=== PATIENT | female | born 1995 ===

== ENCOUNTER 2017-12-10 18:21 | Emergency (ER) | payer SELFPAY ==
[2017-12-10 19:14] LABS: ABS Basophils 0 10^3/ul (0-0.2); ABS Eosinophils 0 10^3/ul (0-0.6); ABS Lymphocytes 0.6 10^3/ul (1.0-4.8); ABS Monocytes 0.9 10^3/ul (0-0.8); ABS Nucleated RBC 0 10^3/ul; Eosinophil % 0 % (0-6); Hematocrit 37 % (35-47); Hemoglobin 12.4 g/dl (12.0-16.0); Lymphocyte % 6.3 % (25-47); Mean Corpuscular HGB Conc 34 g/dl (31-36); Mean Corpuscular Hemoglobin 29 pg (27-31); Mean Corpuscular Volume 87 fL (80-97); Mean Platelet Volume 9 um3 (7.4-10.4); Nucleated Red Blood Cells % 0; Platelet Count 178 10^3/ul (150-450); Red Blood Count 4.25 10^6/ul (4.0-5.4); Red Cell Distribution Width 13 % (10.5-15); White Blood Count 9.5 10^3/ul (3.5-10.8)
[2017-12-10 19:39] LABS: Urine Appearance Cloudy; Urine Blood 3+ (Negative); Urine Color Yellow; Urine Ketones Negative (Negative); Urine Protein 1+(30 mg/dL) (Negative); Urine Specific Gravity 1.002 (1.010-1.030); Urine Urobilinogen Negative (Negative)
[2017-12-10 19:41] LABS: EGFR Non-African American 90.5 (>60)
--- NOTE | 2017-12-10 20:32 | RAD ---
HISTORY: Right lower quadrant pain COMPARISONS: None TECHNIQUE: Multiple transverse and longitudinal ultrasound images were obtained of the right lower quadrant using grayscale and color Doppler imaging. FINDINGS: The appendix is not visualized. There is no free or loculated fluid within the right lower quadrant. IMPRESSION: THE APPENDIX IS NOT VISUALIZED. THERE IS NO FREE OR LOCULATED FLUID WITHIN THE RIGHT LOWER QUADRANT.
[2017-12-10] MEDS ORDERED: NS 0.9% 1000 ML* 2,000 ML IV ONE (20:40)
[2017-12-10] MEDS ORDERED: Morphine INJ* 2 MG/ML 1 ML CARPUJECT IV ONE (20:40)
--- NOTE | 2017-12-10 20:41 | RAD ---
HISTORY: Right lower quadrant pain COMPARISONS: None TECHNIQUE: Multiple transverse and longitudinal ultrasound images were obtained of the pelvis using grayscale, color Doppler, and spectral Doppler imaging using the endovaginal transducer. FINDINGS: UTERUS: The uterus measures 10.3 x 2.5 x 4.2 cm. The uterus is normal in shape, size, contour, and echotexture. ENDOMETRIUM: The endometrial stripe is smooth. The endometrium measures 0.2 cm in thickness. An IUD is noted centrally within the endometrial cavity towards the fundus. The trace amount of endometrial fluid described in the technologist notes is not well visualized and would be expected to be physiologic as described. CUL-DE-SAC: There is no free fluid within the cul-de-sac. RIGHT OVARY: The right ovary measures 2.8 x 1.5 x 2.8 cm. Normal arterial and venous waveforms are identifiable within the ovary on spectral Doppler imaging. Multiple follicles are noted. There is a 1.4 x 1.1 x 1.2 cm simple cyst of the right ovary. LEFT OVARY: The left ovary measures 2.4 x 1.3 x 1.5 cm. Multiple follicles are noted. ] Normal ovary flow BLADDER: The bladder is not well visualized. OTHER: None IMPRESSION: 1. AN IUD IS NOTED CENTRALLY WITHIN THE ENDOMETRIAL CAVITY TOWARDS THE FUNDUS. 2. NO SONOGRAPHIC FEATURES OF TORSION. PLEASE NOTE THAT PARTIAL OR INTERMITTENT TORSION MAY BE SONOGRAPHICALLY NORMAL.
--- NOTE | 2017-12-10 20:44 | ED ---
Abdominal Pain/Female - HPI Summary HPI Summary: 22-year-old female presents to ED with complaints of uti like symptoms and now lower abdominal pain that began today. Patient was seen and health earlier today. States pain has increasingly gotten worse since when it started. States she was having some bladder pain, dysuria, frequency burning and also began having the lower abdominal pain today. Describes pain to be sharp and aching worse with movement and touch. Has not taken any medications. Denies nausea vomiting. Did have a fever earlier today. Normal bowel movements. Has IUD Mirena. Is sexually active. Last menstrual cycle was in August. However they are irregular. Did have a recent and D&C one month ago, november 08, at 6 weeks and is also when she also had the IUD placed. No other abdominal surgeries. No past medical history. Admits to vaginal spotting. Denies any vaginal discharge, bleeding, or itching. No concerns at this time. Denies history of ovarian cysts. - History of Current Complaint Chief Complaint: EDAbdPain Stated Complaint: ABD PAIN Time Seen by Provider: 12/10/17 18:56 Hx Obtained From: Patient Hx Last Menstrual Period: 08/2017 Onset/Duration: Sudden Onset, Lasting Days - yesterday, worse today, Still Present, Worse Since Timing: Constant Severity Initially: Mild Severity Currently: Moderate Pain Intensity: 7 Pain Scale Used: 0-10 Numeric Location: Discrete At: RLQ, Suprapubic Radiates: Yes Radiates to: Back Character: Sharp Aggravating Factor(s): Movement Alleviating Factor(s): Nothing Associated Signs and Symptoms: Positive: Fever - low grade fever earlier per patient, Urinary Symptoms, Vaginal Bleeding - "spotting due to recent IUD placement". Negative: Constipation, Blood in Stool, Vaginal Discharge, Nausea, Vomiting Allergies/Adverse Reactions: Allergies Allergy/AdvReac Type Severity Reaction Status Date / Time No Known Allergies Allergy Verified 12/10/17 18:23 PMH/Surg Hx/FS Hx/Imm Hx Endocrine/Hematology History: Denies: Hx Anticoagulant Therapy, Hx Diabetes Cardiovascular History: Denies: Hx Hypertension Respiratory History: Denies: Hx Asthma - Surgical History Surgery Procedure, Year, and Place: D&C 11/08/2017 - Immunization History Immunizations Up to Date: Yes Infectious Disease History: No Infectious Disease History: Denies: Traveled Outside the [place] in Last 30 Days - Family History Known Family History: Positive: None - Social History Alcohol Use: Occasionally Substance Use Type: Reports: None Smoking Status (MU): Never Smoked Tobacco Review of Systems Constitutional: Negative Cardiovascular: Negative Respiratory: Negative Positive: Abdominal Pain Positive: burning, dysuria, frequency, pain All Other Systems Reviewed And Are Negative: Yes Physical Exam Triage Information Reviewed: Yes Vital Signs On Initial Exam: Initial Vitals Temp Pulse Resp BP Pulse Ox 98.5 F 74 16 100/57 96 12/10/17 18:23 12/10/17 18:23 12/10/17 18:23 12/10/17 18:23 12/10/17 18:23 Vital Signs Reviewed: Yes Appearance: Positive: Well-Appearing, No Pain Distress, Well-Nourished Skin: Positive: Warm, Skin Color Reflects Adequate Perfusion, Dry. Negative: Cold, Cyanosis @, Pale, Erythema @ Head/Face: Positive: Normal Head/Face Inspection Eyes: Positive: Conjunctiva Clear ENT: Positive: Hearing grossly normal, Pharynx normal Neck: Positive: Supple, Nontender Respiratory/Lung Sounds: Positive: Clear to Auscultation, Breath Sounds Present. Negative: Rales, Rhonchi, Wheezes Cardiovascular: Positive: Normal, RRR, Pulses are Symmetrical in both Upper and Lower Extremities. Negative: Murmur, Rub Abdomen Description: Positive: No Organomegaly, Soft, CVA Tenderness (R), CVA Tenderness (L), Guarding, McBurney's Point Tenderness, Other: - TTP of lower abdomen diffusely, suprapubic and RLQ with +psoas.. Negative: Distended Bowel Sounds: Positive: Present Musculoskeletal: Positive: Normal, Strength/ROM Intact Neurological: Positive: Normal, Sensory/Motor Intact, Alert, Oriented to Person Place, Time Diagnostics - Vital Signs Vital Signs Temp Pulse Resp BP Pulse Ox 12/10/17 18:23 98.5 F 74 16 100/57 96 - Laboratory Lab Results: Lab Results 12/10/17 12/10/17 12/10/17 Range/Units 19:00 19:00 19:00 WBC 9.5 (3.5-10.8) 10^3/ul RBC 4.25 (4.0-5.4) 10^6/ul Hgb 12.4 (12.0-16.0) g/dl Hct 37 (35-47) % MCV 87 (80-97) fL MCH 29 (27-31) pg MCHC 34 (31-36) g/dl RDW 13 (10.5-15) % Plt Count 178 (150-450) 10^3/ul MPV 9 (7.4-10.4) um3 Neut % (Auto) 84.0 H (38-83) % Lymph % (Auto) 6.3 L (25-47) % Alpine % (Auto) 9.3 H (0-7) % Eos % (Auto) 0 (0-6) % Baso % (Auto) 0.4 (0-2) % Absolute Neuts (auto) 8.0 H (1.5-7.7) 10^3/ul Absolute Lymphs (auto) 0.6 L (1.0-4.8) 10^3/ul Absolute Monos (auto) 0.9 H (0-0.8) 10^3/ul Absolute Eos (auto) 0 (0-0.6) 10^3/ul Absolute Basos (auto) 0 (0-0.2) 10^3/ul Absolute Nucleated RBC 0 10^3/ul Nucleated RBC % 0 Sodium 136 (133-145) mmol/L Potassium 3.8 (3.5-5.0) mmol/L Chloride 104 (101-111) mmol/L Carbon Dioxide 24 (22-32) mmol/L Anion Gap 8 (2-11) mmol/L BUN 11 (6-24) mg/dL Creatinine 0.80 (0.51-0.95) mg/dL Est GFR ( Amer) 116.4 (>60) Est GFR (Non-Af Amer) 90.5 (>60) BUN/Creatinine Ratio 13.8 (8-20) Glucose 96 (70-100) mg/dL Lactic Acid 1.1 (0.5-2.0) mmol/L Calcium 9.2 (8.6-10.3) mg/dL Magnesium 1.8 L (1.9-2.7) mg/dL Total Bilirubin 0.60 (0.2-1.0) mg/dL AST 11 L (13-39) U/L ALT 6 L (7-52) U/L Alkaline Phosphatase 47 (34-104) U/L C-Reactive Protein 51.78 H (< 5.00) mg/L Total Protein 7.4 (6.4-8.9) g/dL Albumin 4.0 (3.2-5.2) g/dL Globulin 3.4 (2-4) g/dL Albumin/Globulin Ratio 1.2 (1-3) Lipase 10 L (11.0-82.0) U/L Beta HCG, Quant 56.08 mIU/mL Urine Color Urine Appearance Urine pH (5-9) Ur Specific [place] (1.010-1.030) Urine Protein (Negative) Urine Ketones (Negative) Urine Blood (Negative) Urine Nitrate (Negative) Urine Bilirubin (Negative) Urine Urobilinogen (Negative) Ur Leukocyte Esterase (Negative) Urine WBC (Auto) (Absent) Urine RBC (Auto) (Absent) Ur Squamous Epith Cells (Absent) Urine Bacteria (Absent) Urine Glucose (Negative) 12/10/18 Range/Units 19:20 WBC (3.5-10.8) 10^3/ul RBC (4.0-5.4) 10^6/ul Hgb (12.0-16.0) g/dl Hct (35-47) % MCV (80-97) fL MCH (27-31) pg MCHC (31-36) g/dl RDW (10.5-15) % Plt Count (150-450) 10^3/ul MPV (7.4-10.4) um3 Neut % (Auto) (38-83) % Lymph % (Auto) (25-47) % Alpine % (Auto) (0-7) % Eos % (Auto) (0-6) % Baso % (Auto) (0-2) % Absolute Neuts (auto) (1.5-7.7) 10^3/ul Absolute Lymphs (auto) (1.0-4.8) 10^3/ul Absolute Monos (auto) (0-0.8) 10^3/ul Absolute Eos (auto) (0-0.6) 10^3/ul Absolute Basos (auto) (0-0.2) 10^3/ul Absolute Nucleated RBC 10^3/ul Nucleated RBC % Sodium (133-145) mmol/L Potassium (3.5-5.0) mmol/L Chloride (101-111) mmol/L Carbon Dioxide (22-32) mmol/L Anion Gap (2-11) mmol/L BUN (6-24) mg/dL Creatinine (0.51-0.95) mg/dL Est GFR ( Amer) (>60) Est GFR (Non-Af Amer) (>60) BUN/Creatinine Ratio (8-20) Glucose (70-100) mg/dL Lactic Acid (0.5-2.0) mmol/L Calcium (8.6-10.3) mg/dL Magnesium (1.9-2.7) mg/dL Total Bilirubin (0.2-1.0) mg/dL AST (13-39) U/L ALT (7-52) U/L Alkaline Phosphatase (34-104) U/L C-Reactive Protein (< 5.00) mg/L Total Protein (6.4-8.9) g/dL Albumin (3.2-5.2) g/dL Globulin (2-4) g/dL Albumin/Globulin Ratio (1-3) Lipase (11.0-82.0) U/L Beta HCG, Quant mIU/mL Urine Color Yellow Urine Appearance Cloudy Urine pH 6.0 (5-9) Ur Specific [place] 1.002 L (1.010-1.030) Urine Protein 1+(30 mg/dl) A (Negative) Urine Ketones Negative (Negative) Urine Blood 3+ A (Negative) Urine Nitrate Negative (Negative) Urine Bilirubin Negative (Negative) Urine Urobilinogen Negative (Negative) Ur Leukocyte Esterase 3+ A (Negative) Urine WBC (Auto) 3+(>20/hpf) A (Absent) Urine RBC (Auto) Trace(0-2/hpf) (Absent) Ur Squamous Epith Cells Present A (Absent) Urine Bacteria 1+ A (Absent) Urine Glucose Negative (Negative) Result Diagrams: 12/10/17 19:00 12/10/17 19:00 Lab Statement: Any lab studies that have been ordered have been reviewed, and results considered in the medical decision making process. - Ultrasound No standard instances Ultrasound Interpretation: No Acute Changes - transvaginal: 1. AN IUD IS NOTED CENTRALLY WITHIN THE ENDOMETRIAL CAVITY TOWARDS THE FUNDUS. 2. NO SONOGRAPHIC FEATURES OF TORSION. PLEASE NOTE THAT PARTIAL OR INTERMITTENT TORSION MAY BE SONOGRAPHICALLY NORMAL.There is a 1.4 x 1.1 x 1.2 cm simple cyst of the right ovary. Appendix:THE APPENDIX IS NOT VISUALIZED. THERE IS NO FREE OR LOCULATED FLUID WITHIN THE RIGHT LOWER QUADRANT. Ultrasound Interpretation Completed By: Radiologist Re-Evaluation - Re-Evaluation First Eval Re-Evaluation Time: 21:15 Change: Improved - patient's pain had improved significantly Second Eval Re-Evaluation Time: 22:30 Change: Improved - pain still a 2/10, pelvic preformed, updated on all labs and imaging. wants to be discharged. will finish anitbiotic, saline and give pyridium toradol prior to discharge. all questions answered. Abdominal Pain Fem Course/Dx - Course Course Of Treatment: Labs obtained elevation of CRP, left shift. Also elevation of hCG. Ultrasound transvaginal and appendix obtained and negative. patient understands this does not completely rule out appendicitis however due to labs, patients symptoms and physical exam, this appears very unlikely at this time. Urinalysis obtained shows UTI. Spoke with Dr. Oscar about case also examined patient. Also spoke with Dr. Oscar about results of hCG and patient's symptoms. HCG can be elevated for up to 54 days after D&C. Due to it being 57 and patient having IUD placement likely still elevated due to D&C. Appears to be suffering from pyelonephritis with CVA tenderness and dysuria symptoms. Patient's vitals remained afebrile is not tachycardic and normal. Pelvic exam performed and unremarkable. Culture sent and pending results. Started on Cipro and 2 L normal saline. Also given 2 mg of morphine for pain. given pyridium and toradol prior to discharge for patient's symptoms. appears to be suffering from UTI/pyelonephritis will treat at home with cipro, ibuprofen and pyridium. increase fluids. aware of worsening signs and symptoms. no signs of sepsis with normal vitals and no fever, nausea, or vomiting. follow up with pcp for recheck in 2 days. - Diagnoses Differential Diagnosis: Positive: Appendicitis, Urinary Tract Infection - pyelonephritis Provider Diagnoses: UTI (urinary tract infection), Pyelonephritis - Provider Notifications Discussed Care Of Patient With: Dr Oscar Discharge - Sign-Out/Discharge Documenting (check all that apply): Discharge - Discharge Plan Condition: Stable Disposition: HOME Patient Education Materials: Urinary Tract Infection in Women (ED), Kidney Infection (ED) Referrals: Gracy JAVIER,Lori Multani [Primary Care Provider] - Additional Instructions: Take prescribed medication as directed for the next 7 days do not miss a dose. Sent to [facility] on [address] Increase fluid intake. Take prescribed medication as needed for pain and discomfort. You may also take ibuprofen for pain. Warm compresses over her abdomen may also help with pain. Follow-up with her primary care doctor in 2 days for recheck. Any new or worsening symptoms as we discussed (such as fever,nausea, vomiting, increasing abdominal pain, feeling ill) please return to the ED immediately. - Billing Disposition and Condition Condition: STABLE Disposition: HOME
[2017-12-10] MEDS ORDERED: Ampicillin IV* 2 GM in NS 0.9% 100 ML* 100 ML IVPB ONE (20:58)
[2017-12-10] MEDS ORDERED: Ciprofloxacin 400MG IVPREMIX(* 400 MG/200 ML BAG IVPB ONE (21:08)
[2017-12-10] MEDS ORDERED: Phenazopyridine TAB* 100 MG PO ONE (22:17)
[2017-12-10] MEDS ORDERED: Ketorolac INJ* 30 MG/ML 1 ML VIAL IV PUSH ONE (22:18)
[2017-12-10 23:55] VITALS: BP 122/68
--- NOTE | 2017-12-12 12:10 | ED ---
Progress - Progress Note Progress Note: Spoke with patient advised of Dx of Gardnerella. Flagyl 500mg po bid for 7 days sent to [facility] for patient. Pt verbalizes understanding not to drink alcohol while taking medication and no alcohol for 48 hours after last dose of medication Re-Evaluation - Re-Evaluation First Eval Re-Evaluation Time: 21:15 Change: Improved - patient's pain had improved significantly Second Eval Re-Evaluation Time: 22:30 Change: Improved - pain still a 2/10, pelvic preformed, updated on all labs and imaging. wants to be discharged. will finish anitbiotic, saline and give pyridium toradol prior to discharge. all questions answered. Course/Dx - Course Course Of Treatment: Labs obtained elevation of CRP, left shift. Also elevation of hCG. Ultrasound transvaginal and appendix obtained and negative. patient understands this does not completely rule out appendicitis however due to labs, patients symptoms and physical exam, this appears very unlikely at this time. Urinalysis obtained shows UTI. Spoke with Dr. Oscar about case also examined patient. Also spoke with Dr. Oscar about results of hCG and patient's symptoms. HCG can be elevated for up to 54 days after D&C. Due to it being 57 and patient having IUD placement likely still elevated due to D&C. Appears to be suffering from pyelonephritis with CVA tenderness and dysuria symptoms. Patient's vitals remained afebrile is not tachycardic and normal. Pelvic exam performed and unremarkable. Culture sent and pending results. Started on Cipro and 2 L normal saline. Also given 2 mg of morphine for pain. given pyridium and toradol prior to discharge for patient's symptoms. appears to be suffering from UTI/pyelonephritis will treat at home with cipro, ibuprofen and pyridium. increase fluids. aware of worsening signs and symptoms. no signs of sepsis with normal vitals and no fever, nausea, or vomiting. follow up with pcp for recheck in 2 days. - Diagnoses Provider Diagnoses: UTI (urinary tract infection), Pyelonephritis Discharge - Sign-Out/Discharge Documenting (check all that apply): Post-Discharge Follow Up - Discharge Plan Condition: Stable Disposition: HOME Prescriptions: Ciprofloxacin TAB* [Cipro 500 MG TAB*] 500 mg PO BID #13 tab metroNIDAZOLE [Flagyl 500 MG TAB] 500 mg PO BID #14 tab Phenazopyridine 200 mg (NF) [Pyridium 200 MG tab *] 200 mg PO TID PRN #5 tab PRN Reason: Pain Patient Education Materials: Urinary Tract Infection in Women (ED), Kidney Infection (ED) Referrals: Lori Cox [Primary Care Provider] - Additional Instructions: Take prescribed medication as directed for the next 7 days do not miss a dose. Sent to [facility] on [address] Increase fluid intake. Take prescribed medication as needed for pain and discomfort. You may also take ibuprofen for pain. Warm compresses over her abdomen may also help with pain. You will hear about culture results if positive. Follow-up with her primary care doctor in 2 days for recheck. Any new or worsening symptoms as we discussed (such as fever,nausea, vomiting, increasing abdominal pain, feeling ill) please return to the ED immediately. - Billing Disposition and Condition Condition: STABLE Disposition: HOME
== END 2017-12-10 23:53 | disposition home or self-care (01) ==
LOC: ED 18:21
DX: N39.0 Urinary tract infection, site not specified (principal); N12 Tubulo-interstitial nephritis, not specified as acute or chronic; N93.9 Abnormal uterine and vaginal bleeding, unspecified; R50.9 Fever, unspecified; Z32.00 Encounter for pregnancy test, result unknown; Z97.5 Presence of (intrauterine) contraceptive device
CPT/HCPCS: 36415; 76705; 76830; 80053; 81003; 81015; 83605; 83690; 83735; 84702; 85025; 86140; 87077; 87086; 87186; 87480; 87491; 87510; 87591; 87661; 96361; 96365; 96375; 99283; A9270-GY; J0290; J0744; J1885; J2270